=== PATIENT | male | born 1975 | race Caucasian/White ===

== ENCOUNTER 2022-03-15 07:15 | Emergency (ER) | payer MEDICAID, SELFPAY ==
[2022-03-15 07:17] VITALS: BP 131/76; PULSE 98; RESP 16; TEMP 36.6; O2SAT 99; BMI 24.3
--- NOTE | 2022-03-15 07:25 | EKG12_ITS ---
Test Reason : palps/cp Blood Pressure : / mmHG Vent. Rate : 090 BPM Atrial Rate : 090 BPM P-R Int : 126 ms QRS Dur : 084 ms QT Int : 342 ms P-R-T Axes : 047 071 -30 degrees QTc Int : 418 ms Normal sinus rhythm T wave abnormality, consider inferior ischemia Abnormal ECG Confirmed by CHELY WASHINGTON, DARRON ([id number]), online editor ANTONI GOLDSMITH ([id number]) on 03/19/2022 1:00:24 PM Referred By: Confirmed By:DARRON MO MD
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
[2022-03-15 08:02] LABS: ALB/GLOB Ratio 1.3 RATIO (0.9-2.4); AST(SGOT) 12 U/L (15-37); Alanine Aminotransfer ALT/SGPT 16 U/L (16-61); Albumin, Serum 3.9 g/dL (3.2-5.0); Alkaline Phosphatase 81 U/L (45-117); Anion Gap 4 (5-15); BUN 18 mg/dL (7-18); BUN/Creat Ratio 19.7 RATIO (10-20); Chloride 109 mmol/L (98-107); Creatinine, Serum 0.92 mg/dL (0.70-1.30); EST Glomerular Filtration Rate 94 mL/min (>60); Est Glom Filt Rate - Afr Amer 114 mL/min (>60); Estimated Creatinine Clearance 96.03 ml/min; Globulin 3.1 g/dL (2.2-4.2); Glucose 119 mg/dL (74-106); Potassium 4.2 mmol/L (3.5-5.1); Sodium Level 139 mmol/L (136-145); Troponin-I HS 3 pg/mL (3.0-78.0)
[2022-03-15 09:30] VITALS: BP 110/72; PULSE 70; RESP 16; O2SAT 96
--- NOTE | 2022-03-15 09:56 | NURSING ---
Pt chooses to leave without waiting for results or to speak to MD stating he has to get to work. IV removed.
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
== END 2022-03-15 09:57 | disposition left against medical advice (07) ==
LOC: ED 07:52
PROVIDERS: Emergency Provider Emergency Medicine; Visit Provider Emergency Medicine
DX: R00.2 Palpitations (principal); F17.210 Nicotine dependence, cigarettes, uncomplicated; Z79.899 Other long term (current) drug therapy
CPT/HCPCS: 80048; 80053; 84484; 93005; 99285; A4216